=== PATIENT | male | born 1945 | race Caucasian/White ===

== ENCOUNTER 2020-06-06 13:01 | Outpatient (RCR) | payer MEDICARE, OTHER, SELFPAY ==
[2020-06-06] MEDS: COVID-19 VACC, MRNA(PFIZER)/PF 30 MCG/0.3 ML SYRINGE IM (11:59)
[2020-06-27] MEDS: COVID-19 VACC, MRNA(PFIZER)/PF 30 MCG/0.3 ML SYRINGE IM (11:48)
== END 2020-09-05 23:59 ==
LOC: IMMUN 13:01
PROVIDERS: PCP Student in an Organized Health Care Education/Training Program; Visit Provider Family Medicine
DX: Z23 Encounter for immunization (principal)
CPT/HCPCS: 0001A; 0002A; 91300

== ENCOUNTER 2024-12-08 10:58 | Observation (INO) | payer MEDICARE, OTHER, SELFPAY ==
--- NOTE | 2024-12-03 20:34 | PAT.ANESEVAL ---
Pre-Assessment Diagnosis/Proposed Procedure Planned Operative Procedure(s): Cysto,Transurethral Resection Prostate Anesthesia History Anesthesia History - poly packer and heat sealer: Anesthesia History - poly packer and heat sealer Hx Hospitalization No 11/30/24 13:28 Any Problems With Anesthesia No 11/30/24 13:28 Cholinesterase deficiency No 11/30/24 13:28 You/Your Family Experience No 11/30/24 13:28 fever (hyperthermia) with Relationship Recent Exposure to Contagious Disease Does patient have nerve No 11/30/24 13:28 stimulator Patient instructed to have device shut off --Does patient have Pacemaker or ICD? When Was Last Pacemaker Check QUESTION #4 FULL TEXT: You/Your Family Experience fever (hyperthermia) with Anesthesia Last Oral Intake Last Oral intake: Last Oral Intake NPO since Meds taken in AM with sips of water? Meds patient instructed to take am of surgery PONV PONV - poly packer and heat sealer: PONV - poly packer and heat sealer Female No 11/30/24 13:28 HX of Motion Sickness Yes 11/30/24 13:28 HX of N/V After Surgery No 11/30/24 13:28 Non-Smoker Yes 11/30/24 13:28 Duration of Surgery greater Yes 11/30/24 13:28 than 60 minutes Number of Risk Factors 3 11/30/24 13:28 PONV Score Moderate Risk 11/30/24 13:28 Respiratory Assessment Respiratory Assessment - poly packer and heat sealer: Respiratory Tract Infection Hx - poly packer and heat sealer Hx Respiratory Tract Infection No 11/30/24 13:28 STOP Sleep Apnea STOP Sleep Apnea - poly packer and heat sealer: STOP Sleep Apnea - poly packer and heat sealer Hx Hypertension Yes: PER PT, CONTROLLED ON 11/30/24 13:28 MEDS Hx Sleep Apnea No 11/30/24 13:28 CPAP BIPAP Do you snore loudly (louder No 11/30/24 13:28 than talking or can be heard Do you often feel tired/ No 11/30/24 13:28 fatigued/ sleepy during daytime? Has anyone observed you stop No 11/30/24 13:28 breathing during sleep? STOP Results Negative 11/30/24 13:28 QUESTION #5 FULL TEXT : Do you snore loudly (louder than talking or can be heard through closed doors)? 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 Specify any problems Hx of Preganancy in last 3 N/A 11/30/24 13:28 Months Nurse Filling Out Transfusion MGRIJEANNA 11/30/24 13:28 & Questions: Date: 11/30/24 11/30/24 13:28 Time: 13:30 11/30/24 13:28 Patient unable to answer at this time (ie. confused, unrespo /Reproduction History /Reproductive History - poly packer and heat sealer: /Reproductive Hx- poly packer and heat sealer Hx Now No 11/30/24 13:28 Gestational Age (in weeks): EDC: Hx Hx Para Hx Section SAB No 11/30/24 13:28 [facility] Medical History (Updated 11/30/24 @ 13:43 by Ingrid Guzmán) Wears hearing aid Loss of hearing Wears glasses Wears dentures Edentulous Depression Anxiety Ambulates with cane Arthritis History of renal disease Prostate disease High cholesterol Back pain Dietary restriction Difficulty swallowing History of hiatal hernia Gastric reflux Shortness of breath on exertion Hoarseness Former smoker Leg cramps History of edema History of echocardiogram History of stress test Cardiology follow-up encounter Hypertension History of irregular heartbeat Home Medications Medication Instructions Recorded Last Taken Type amlodipine 10 mg-benazepril 40 mg 1 cap PO DAILY 11/30/24 Unknown History capsule aspirin 81 mg tablet,delayed 81 mg PO MOWEFR 11/30/24 11/24/24 History release cetirizine 10 mg tablet (24Hour 10 mg PO DAILY 11/30/24 Unknown History Allergy) famotidine 20 mg tablet 20 mg PO Q12H acid reflux 11/30/24 Unknown History finasteride 5 mg tablet 5 mg PO DAILY 11/30/24 Unknown History hydrochlorothiazide 12.5 mg capsule 12.5 mg PO DAILY 11/30/24 Unknown History meloxicam 7.5 mg tablet 7.5 mg PO DAILY PRN pain 11/30/24 Unknown History metformin 500 mg tablet 500 mg PO BID 11/30/24 Unknown History metoprolol succinate 25 mg 25 mg PO BID 11/30/24 Unknown History tablet,extended release 24 hr multivitamin (Daily Multi-Vitamin 1 tab PO DAILY 11/30/24 Unknown History tablet) rosuvastatin 10 mg tablet 10 mg PO QHS 11/30/24 Unknown History Allergy/AdvReac Type Severity Reaction Status Date / Time cortisone Allergy Intermediate Swelling Verified 11/30/24 13:16 Penicillins (PCN) Allergy Intermediate Rash Verified 11/30/24 13:16 Sulfa (Sulfonamide Allergy Intermediate PT UNSURE Verified 11/30/24 13:16 Antibiotics) OF REACTION NSAIDS (Non-Steroidal AdvReac Mild Other Verified 11/30/24 13:25 Anti-Inflamma Surgical History (Updated 11/30/24 @ 13:43 by Ingrid Guzmán) History of cardiac catheterization History of tooth extraction History of cataract extraction History of colonoscopy Social History Smoking Status: Former smoker Audit: Pertinent Findings Pertinent Findings EKG Perinent findings: 12/01/2024.Sinus rhythm. PVCs. LAD. Anterior infarct. RBBB. Consider also gonzalo-infarct block. Stress test pertinent findings: 07/05/2019. EF of 47% Echo (EF%) pertinent findings: 07/05/2019. EF of 45 to 50%. Heart catheterization pertinent findings: 08/11/2019. Mild diffuse disease. 40% mid LAD. 40% stenosis in ramus. Consult pertinent findings: December 01, 2024. FISH CMP. 1. Left bundle branch block-no bradycardia noted. Heart cath showed nonobstructive coronary artery disease. 2. CAD in [place] arteries. Stable. No anginal symptoms. Continue aspirin and rosuvastatin. 3. Nonischemic cardiomyopathy-no signs or symptoms of fluid overload. NYHA class II-III. Continue metoprolol and benazepril. 4. Hypertension–controlled. 5. PVCs–by history–asymptomatic. 6. Preop cardiovascular exam-patient can proceed with upcoming surgery at low to moderate cardiac risk. Hold aspirin for 7 days. Recommendation Anesthesia Recommendation Anesthesia recommendation: OPTIMIZED for anesthesia
[2024-12-08] VITALS (16 sets, daily range): BP systolic 111–143; BP diastolic 56–77; PULSE 80–95; RESP 15–19; TEMP 36.1–37.2; O2SAT 90–99; BMI 26.0
[2024-12-08] MEDS: Lactated Ringers 1,000 ML 15 ML IV (08:29)
--- NOTE | 2024-12-08 08:43 | PRE.ANES_ITS ---
ASA Classification* ASA Classification ASA Classification: 3 Assessment & Plan Anesthesia* Anesthesia Assessment Anesthesia Assessment: Discussed sedation and/or anesthesia options, risks, benefits, and alternatives with patient/parents/legal guardian/POA. Questions invited. The patient/parents/legal guardian/POA seems to understand and agrees to proceed with anesthesia plan. Reviewed the physical assessment, medical history, allergy history and patient home medications list prior to surgery/procedure/anesthetic and documented any changes. Performed airway and anesthesia risk assessments. 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 When Was Last Pacemaker Check QUESTION #4 FULL TEXT: You/Your Family Experience fever (hyperthermia) with Anesthesia Last Oral Intake Last Oral intake: Last Oral Intake NPO since 00:00 12/08/24 08:32 Meds taken in AM with sips of Yes 12/08/24 08:32 water? Meds patient instructed to see mar 12/08/24 08:32 take am of surgery PONV PONV - silk screen printing racker: PONV - silk screen printing racker Female No 11/30/24 13:28 HX of Motion Sickness Yes 11/30/24 13:28 HX of N/V After Surgery No 11/30/24 13:28 Non-Smoker Yes 11/30/24 13:28 Duration of Surgery greater Yes 11/30/24 13:28 than 60 minutes Number of Risk Factors 3 11/30/24 13:28 PONV Score Moderate Risk 11/30/24 13:28 Height & Weight Height & Weight: Anesthesia: Height & Weight Height 5 ft 5 in 12/08/24 08:32 Weight: 71 kg 12/08/24 08:32 Body Mass Index (BMI) 26.0 12/08/24 08:32 Respiratory Assessment Respiratory Assessment - silk screen printing racker: Respiratory Tract Infection Hx - silk screen printing racker Hx Respiratory Tract Infection No 11/30/24 13:28 STOP Sleep Apnea STOP Sleep Apnea - silk screen printing racker: STOP Sleep Apnea - silk screen printing racker Hx Hypertension Yes: PER PT, CONTROLLED ON 11/30/24 13:28 MEDS Hx Sleep Apnea No 11/30/24 13:28 CPAP BIPAP Do you snore loudly (louder No 11/30/24 13:28 than talking or can be heard Do you often feel tired/ No 11/30/24 13:28 fatigued/ sleepy during daytime? Has anyone observed you stop No 11/30/24 13:28 breathing during sleep? STOP Results Negative 11/30/24 13:28 QUESTION #5 FULL TEXT : Do you snore loudly (louder than talking or can be heard through closed doors)? 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 Specify any problems Hx of Preganancy in last 3 N/A 11/30/24 13:28 Months Nurse Filling Out Transfusion MGRIFFITH 11/30/24 13:28 & Questions: Date: 11/30/24 11/30/24 13:28 Time: 13:30 11/30/24 13:28 Patient unable to answer at this time (ie. confused, unrespo /Reproduction History /Reproductive History - silk screen printing racker: /Reproductive Hx- silk screen printing racker Hx Now No 11/30/24 13:28 Gestational Age (in weeks): EDC: Hx Hx Para Hx Section SAB No 11/30/24 13:28 Active Medications Active Medications: Current Medications Generic Name Dose Route Start Last Admin Trade Name Freq PRN Reason Stop Dose Admin Cefazolin Sodium 2 gm/ Sodium 110 mls @ 200 mls/hr 12/08/24 10:15 Chloride IV 12/08/24 10:47 INTRAOP ONE Lactated Ringer's 1,000 mls @ 15 mls/hr 12/08/24 08:15 12/08/24 08:29 IV 15 mls/hr .Q48H SIRIA Administration PFSH Medical History Wears hearing aid Loss of hearing Wears glasses Wears dentures Edentulous Depression Anxiety Ambulates with cane Arthritis History of renal disease Prostate disease High cholesterol Back pain Dietary restriction Difficulty swallowing History of hiatal hernia Gastric reflux Shortness of breath on exertion Hoarseness Former smoker Leg cramps History of edema History of echocardiogram History of stress test Cardiology follow-up encounter Hypertension History of irregular heartbeat Home Medications Medication Instructions Recorded Last Taken Type amlodipine 10 mg-benazepril 40 mg 1 cap PO DAILY 11/3012/08/24 History capsule aspirin 81 mg tablet,delayed 81 mg PO MOWEFR 11/30/24 11/10/24 History release cetirizine 10 mg tablet (24Hour 10 mg PO DAILY 5 Unknown History Allergy) famotidine 20 mg tablet 20 mg PO Q12H acid reflux 12/08/24 History finasteride 5 mg tablet 5 mg PO DAILY 11/30/2412/07 History hydrochlorothiazide 12.5 mg capsule 12.5 mg PO DAILY 0 11/30/24 12/07/24 History meloxicam 7.5 mg tablet 7.5 mg PO DAILY PRN pain 05/2511/10/24 History metformin 500 mg tablet 500 mg PO BID 11/30/2412/07 History metoprolol succinate 25 mg 25 mg PO BID 11/30/2412/08 History tablet,extended release 24 hr multivitamin (Daily Multi-Vitamin 1 tab PO DAILY 11/3012/07/24 History tablet) rosuvastatin 10 mg tablet 10 mg PO QHS 11/30/24 History Allergy/AdvReac Type Severity Reaction Status Date / Time cortisone Allergy Intermediate Swelling Verified 12/08/24 08:27 Penicillins (PCN) Allergy Intermediate Rash Verified 12/08/24 08:27 Sulfa (Sulfonamide Allergy Intermediate PT UNSURE Verified 12/08/24 08:27 Antibiotics) OF REACTION NSAIDS (Non-Steroidal AdvReac Mild Other Verified 12/08/24 08:27 Anti-Inflamma Surgical History History of cardiac catheterization History of tooth extraction History of cataract extraction History of colonoscopy Social History Smoking Status: Former smoker Review of Systems (Anesthesia) ROS Narrative System reviewed and no additional complaints, except as documented.
[2024-12-08] MEDS: Cefazolin 1 GM/5 ML Vial 2 GM IV (09:50)
[2024-12-08] MEDS: Lidocaine 1% (5 ml sdv) 5 ML Vial 10 ML IV (09:51)
[2024-12-08] MEDS: fentaNYL 100 MCG/2 ML Ampul IV (10:04)
--- NOTE | 2024-12-08 10:15 | PROS_PTH ---
PATIENT: TALHA MCCALL LOC: [facility] U#:[id number] AGE/SX: 79/M ROOM: [facility]317 RE12/08/[address]: Dr. Alex Avitia MD : 1945 BED: 1 DIS: 12/09/2024 SPEC #: [id number] RECD: 12/08/24 11:39 STATUS: HEVER MURILLO #: [id number] SHAN: 12/08/24 10:[address]: Alex Avitia DEPT: SURGICAL PATHOLOGY RECD BY: Jak Dumont ENTERED: 12/08/24 13:40 SP TYPE: TURP OTHR DR: Dr. Jose Martin Echevarria, Tissues: A - Prostate, NOS Procedures: Surgery Specimen Level IV HEADER OPERATION: Cysto, transurethral resection, prostate PRE-OP DIAGNOSIS: Benign prostatic hyperplasia TISSUE SUBMITTED: A- Prostate tissue MICROSCOPIC DIAGNOSIS A. Prostate, transurethral resection: - Benign prostate tissue, focal acute prostatitis. MICROSCOPIC DESCRIPTION Slides are reviewed. GROSS DESCRIPTION A. Received in formalin labeled with the patient's name and date of . Designated as " prostate tissue" is a 18.3 g, 5.8 x 5.6 x 1.7 cm aggregate of irregular, llamas, rubbery and cauterized tissue fragments. Entirely submitted in 10 cassettes. ND 12/08/2024 CPT:33694
--- NOTE | 2024-12-08 10:59 | DCINST_ITS ---
Discharge Instructions DC O2, CPAP, BIPAP needs Home O2 Discharge instructions: No Dressing / Incision Discharge Activity: Return to Normal Activity and May Not Drive (while taking narcotic pain medications.) Dressing / Incision Call your doctor if you observe: Fever of 101 or Higher Follow Up Care Please Follow Up With: Alex Avitia MD When: Call [phone] for an appointment Test Results: Test results from this visit will be discussed in further detail at your follow- up appointment, if applicable. Discharge Plan Admission Primary Reason for Your Visit: turp Attending Provider: Alex Avitia Primary Care Provider: Jose Martin Echevarria Instructions Print Language: Panamanian Discharge Orders/Prescriptions Prescriptions: New ciprofloxacin HCl [Cipro] 500 mg tablet 500 mg PO BID Qty: 20 0RF Continued amlodipine-benazepril 10-40 mg capsule 1 cap PO DAILY famotidine 20 mg tablet 20 mg PO Q12H metformin 500 mg tablet 500 mg PO BID meloxicam 7.5 mg tablet 7.5 mg PO DAILY PRN (Reason: pain) hydrochlorothiazide 12.5 mg capsule 12.5 mg PO DAILY finasteride 5 mg tablet 5 mg PO DAILY metoprolol succinate 25 mg tablet extended release 24 hr 25 mg PO BID rosuvastatin 10 mg tablet 10 mg PO QHS cetirizine [24Hour Allergy] 10 mg tablet 10 mg PO DAILY multivitamin [Daily Multi-Vitamin] Tablet 1 tab PO DAILY Discontinued aspirin 81 mg tablet,delayed release (DR/EC) 81 mg PO MOWEFR Referrals / Follow Up: Alex Avitia MD [Med Staff - Active Staff] - Jose Martin Echevarria DO [Primary Care Provider] - Disposition Disposition (needs filled in before D/C Order can be placed): Home, Self Care
--- NOTE | 2024-12-08 10:59 | OP.PCM_ITS ---
Operative Report (Standard) Operative Information Date of Procedure: 12/08/24 Pre-Operative Diagnosis: BPH with obstruction Post-Operative Diagnosis: The same Surgery/Procedure Performed: Transurethral section of prostate fibre cement moulder: No Type of Anesthesia: General RN Documented Start/Stop Times: Operation Date: 12/08/24 10:15 Case Time Into Pre-Op 12/08/24 08:07 Out of Pre-Op 12/08/24 09:41 Anesthesia Start 12/08/24 09:45 Into Room 12/08/24 09:45 Procedure Start 12/08/24 10:08 Procedure End 12/08/24 10:52 Anesthesia End 12/08/24 10:58 Out of Room 12/08/24 10:58 Procedure Start Time: 10:08 Procedure Stop Time: 10:52 Select all DRAINS/GRAFTS/IMPLANTS that apply: Drains Drain details: 22 [employer] three-way [place] Estimated Blood Loss: Minimal Specimen collected: Yes Description of specimen(s) removed: Prostate tissue Description of surgery: Patient was taken back to the operating room after smooth induction of anesth esia was placed in dorsolithotomy position went in with a 26 C[employer]es continuous- flow Olympus bipolar resectoscope identified the left and right ureteral orifice of the bladder neck to verumontanum I then started resecting at the bladder neck he did have a small median lobe I then resected the right lobe of the prostate left of the prostate I then switched over to the button and smooth out the resec tion and to get a nice wide open flow channel did a flow test he had a nice wide open flow when I first first went in the bladder his bladder was fairly distended not emptying all the way after resecting the prostate completely I did a flow test he had a right open flow we will put a catheter on the bladder for continuous irrigation I would imagine the patient to be able to urinate after this but he may not empty the bladder completely since he had a stricture stretched out large bladder. Who put a continuous irrigation to take back to PACU in good condition Surgical Findings: Large obstructive prostate and significant distention of the bladder with incomplete emptying Complications Complications: No Admit VTE Documentation VTE Present on Admission: No VTE Mechan Device Prophylaxis: SCD's VTE Pharm Prophylaxis ordered?: No
--- NOTE | 2024-12-08 11:39 | PCM.POST.ANE ---
Anesthesia: Postop Eval I Current Vital Signs Temperature: 97 F Pulse Rate: 88 Blood Pressure: 136/76 Respiratory Rate: 16 Pulse Ox: 98 Oxygen Delivery Method: Room Air Assessment Airway patent: Yes Spontaneous unlabored respirations: Yes Mental status: Awake and Calm nausea: No Vomiting: No Anesthesia Complication: No Fluid Hydration Crystalloid volume administer (ml): 750 Total IV fluid infused: 750 Progress Note Anesthesia document: Postop Eval 1 completed: Yes
--- NOTE | 2024-12-08 13:02 | POSTOPAN2_ITS ---
Anesthesia Postop Eval I Sum Postop Eval Completion status Anesthesia document: Postop Eval 1 completed: Yes Anesthesia Postop Eval I Summary Anesthesia Postop Eval I Summary: Anesthesia Postop Eval I: Assessment Summary Airway patent Yes 12/08/24 11:40 FLATWORK ASSEMBLER.MEDM Spontaneous unlabored Yes 12/08/24 11:40 FLATWORK ASSEMBLER.MEDM respirations Mental status Awake,Calm 12/08/24 11:40 FLATWORK ASSEMBLER.MEDM nausea No 12/08/24 11:40 FLATWORK ASSEMBLER.MEDM Vomiting No 12/08/24 11:40 FLATWORK ASSEMBLER.MEDM Anesthesia Postop Eval I: Fluid Summary Crystalloid volume administer 750 12/08/24 11:40 FLATWORK ASSEMBLER.MEDM (ml) Colloids volume administered ( ml) Blood Product volume administered (ml) Total IV fluid infused 750 12/08/24 11:40 FLATWORK ASSEMBLER.MEDM Anesthesia Postop Eval I: Summary Notes Anesthesia Complication No 12/08/24 11:40 FLATWORK ASSEMBLER.MEDM Anesthesia Complication Comment: Post-operative progress note Anesthesia: Postop Eval II Evaluation Mental status: Awake and Calm Pain Level: 1 nausea: No Vomiting: No Complications Anesthesia Complication: No
--- NOTE | 2024-12-08 13:02 | PCM.POSTANE2 ---
Anesthesia Postop Eval I Sum Postop Eval Completion status Anesthesia document: Postop Eval 1 completed: Yes Anesthesia Postop Eval I Summary Anesthesia Postop Eval I Summary: Anesthesia Postop Eval I: Assessment Summary Airway patent Yes 12/08/24 11:40 POLE FRAMER MACHINE.MEDM Spontaneous unlabored Yes 12/08/24 11:40 POLE FRAMER MACHINE.MEDM respirations Mental status Awake,Calm 12/08/24 11:40 POLE FRAMER MACHINE.MEDM nausea No 12/08/24 11:40 POLE FRAMER MACHINE.MEDM Vomiting No 12/08/24 11:40 POLE FRAMER MACHINE.MEDM Anesthesia Postop Eval I: Fluid Summary Crystalloid volume administer 750 12/08/24 11:40 POLE FRAMER MACHINE.MEDM (ml) Colloids volume administered ( ml) Blood Product volume administered (ml) Total IV fluid infused 750 12/08/24 11:40 POLE FRAMER MACHINE.MEDM Anesthesia Postop Eval I: Summary Notes Anesthesia Complication No 12/08/24 11:40 POLE FRAMER MACHINE.MEDM Anesthesia Complication Comment: Post-operative progress note Anesthesia: Postop Eval II Evaluation Mental status: Awake and Calm Pain Level: 1 nausea: No Vomiting: No Complications Anesthesia Complication: No
[2024-12-08] MEDS: 0.9% Normal Saline (1000mL) 1,000 ML 75 ML IV (13:20)
[2024-12-08] MEDS: Metoprolol(XL)Succ 25 MG Tablet PO (20:30)
[2024-12-09 03:50] VITALS: BP 133/68; PULSE 89; RESP 15; TEMP 36.9; O2SAT 94
[2024-12-09 04:00] VITALS: RESP 15
--- NOTE | 2024-12-09 07:18 | PCM.DC.SUM ---
Providers Date of Admission: 12/08/24 Primary Care Physician: Dr. Jose Martin Echevarria DO Reason For Visit: Cysto,Transurethral Resection Prostate Medications at Discharge Home Medications amlodipine 10 mg-benazepril 40 mg capsule 1 cap PO DAILY 11/30/24 cetirizine 10 mg tablet (24Hour Allergy) 10 mg PO DAILY 11/30/24 famotidine 20 mg tablet 20 mg PO Q12H acid reflux 11/30/24 finasteride 5 mg tablet 5 mg PO DAILY 11/30/24 hydrochlorothiazide 12.5 mg capsule 12.5 mg PO DAILY 11/30/24 meloxicam 7.5 mg tablet 7.5 mg PO DAILY PRN pain 11/30/24 metformin 500 mg tablet 500 mg PO BID 11/30/24 metoprolol succinate 25 mg tablet,extended release 24 hr 25 mg PO BID 11/30/24 multivitamin (Daily Multi-Vitamin tablet) 1 tab PO DAILY 11/30/24 rosuvastatin 10 mg tablet 10 mg PO QHS 11/30/24 ciprofloxacin HCl 500 mg tablet (Cipro) 500 mg PO BID #20 tabs 12/08/24 Hospital Course Operations TURP Weight / BMI Weight Weight: 71 kg Body Mass Index (BMI) 26.0 D/C Instructions Call your doctor if you observe: Fever of 101 or Higher DC O2, CPAP, BIPAP Needs Home O2 Discharge instructions: No Please Follow Up With: Alex Avitia MD When: Call [phone] for an appointment Meaningful Use Info Meaningful Use Meaningful Use Diagnoses (Choose all that apply): None applicable Discharge Plan Admission Admit Date/Time: 12/08/24 10:58 Primary Reason for Your Visit: turp Attending Provider: Alex Avitia Primary Care Provider: Jose Martin Echevarria Discharge Orders/Prescriptions Prescriptions: New ciprofloxacin HCl [Cipro] 500 mg tablet 500 mg PO BID Qty: 20 0RF Continued amlodipine-benazepril 10-40 mg capsule 1 cap PO DAILY famotidine 20 mg tablet 20 mg PO Q12H metformin 500 mg tablet 500 mg PO BID meloxicam 7.5 mg tablet 7.5 mg PO DAILY PRN (Reason: pain) hydrochlorothiazide 12.5 mg capsule 12.5 mg PO DAILY finasteride 5 mg tablet 5 mg PO DAILY metoprolol succinate 25 mg tablet extended release 24 hr 25 mg PO BID rosuvastatin 10 mg tablet 10 mg PO QHS cetirizine [24Hour Allergy] 10 mg tablet 10 mg PO DAILY multivitamin [Daily Multi-Vitamin] Tablet 1 tab PO DAILY Discontinued aspirin 81 mg tablet,delayed release (DR/EC) 81 mg PO MOWEFR Referrals / Follow Up: Alex Avitia MD [Med Staff - Active Staff] - Jose Martin Echevarria DO [Primary Care Provider] - Disposition Discharge Orders: Discharge Patient (Routine); Ordered 12/09/24 Ordered By: Dr. Alex Avitia
[2024-12-09 07:21] VITALS: BP 136/74; PULSE 88; RESP 16; TEMP 36.4; O2SAT 97
== END 2024-12-09 09:00 | disposition home or self-care (01) ==
LOC: SDC 11:45 → MS3 11:45
PROVIDERS: Admitting Provider Urology; PCP Student in an Organized Health Care Education/Training Program; Referring Provider Urology; Visit Provider Urology
PROC: (CPT 52601; principal; 2024-12-08 10:05)
DX: N40.1 Benign prostatic hyperplasia with lower urinary tract symptoms (principal); E11.9 Type 2 diabetes mellitus without complications; N13.8 Other obstructive and reflux uropathy; N32.89 Other specified disorders of bladder; Z79.899 Other long term (current) drug therapy; Z79.84 Long term (current) use of oral hypoglycemic drugs; Z79.82 Long term (current) use of aspirin; R39.14 Feeling of incomplete bladder emptying; R39.11 Hesitancy of micturition; R35.1 Nocturia; R33.8 Other retention of urine; I25.10 Atherosclerotic heart disease of native coronary artery without angina pectoris; I10 Essential (primary) hypertension
CPT/HCPCS: 52601; 00914; 82962; 88305; 96361; 96365; 97802; 99221; G0378; J0744; J2405